=== PATIENT | male | born 1985 | race Caucasian/White ===

== ENCOUNTER 2016-08-09 16:52 | Emergency (ER) | payer MEDICAID, OTHER ==
[~2016-08-09] VITALS: Ht 162.6 cm; Wt 68.0 kg
[2016-08-09 17:00] VITALS: Ht 162.6 cm; Wt 68.0 kg
--- NOTE | 2016-08-09 17:15 | ERD ---
ER Documentation Chief Complaint Date/Time DATE: 08/09/16 TIME: 17:15 Chief Complaint anxiety attack HPI 30-year-old male with no significant previous medical history brought to the ED via rescue ambulance complaining of generalized malaise. He was in his usual state of health until early this morning when he experienced subjective fevers which he took NyQuil. [place] better throughout the day but prior to arrival began to feel "scared" with palpitations and his hands cramping. On arrival EMS found the patient tachycardic with a heart rate of 140, hyperventilating with carpopedal spasm. They were able to reassure him and his symptoms resolved. Denies history of depression or anxiety. No chest pain or shortness of breath. No abdominal pain, nausea or vomiting. Mild generalized body aches and sore throat but no rhinorrhea or nasal congestion. No leg pain or swelling. No skin rash. No headache or neck pain. No dysuria or polyuria. ROS All systems reviewed and are negative except as per history of present illness. Medications Home Meds Active Scripts Acetaminophen* (Tylenol*) 325 Mg Tablet, 2 TAB PO Q4 Y for FEVER, #20 TAB Prov:NAHUM LAKE MD 08/09/16 Allergies Allergies: Coded Allergies: No Known Allergy (Unverified , 08/09/16) PMhx/Soc Reviewed in chart. As per HPI History of Surgery: No Anesthesia Reaction: No Hx Neurological Disorder: No Hx Respiratory Disorders: No Hx Cardiac Disorders: No Hx Psychiatric Problems: No Hx Miscellaneous Medical Probl: No Hx Alcohol Use: No Hx Substance Use: No Hx Tobacco Use: No FmHx No diabetes, stroke or sudden cardiac Physical Exam Vitals Vital Signs Date Time Temp Pulse Resp B/P Pulse Ox O2 Delivery O2 Flow Rate FiO2 08/09/16 18:47 101.3 113 20 137/67 100 Room Air 08/09/16 17:50 102.4 08/09/16 17:00 97.8 109 18 120/70 99 Physical Exam Const: Alert, anxious but in no acute distress. Head: Atraumatic Eyes: Normal Conjunctiva. Pupils equal reactive to light, extraocular movements are intact. No nystagmus. ENT: Normal External Ears, Nose and Mouth. Pharynx is clear without erythema or exudate Neck: Full range of motion. No lymphadenopathy. No meningismus. Resp: Breath sounds are equal and clear to auscultation bilaterally Cardio: Regular rate and rhythm, no murmurs Abd: Soft, non tender, non distended. No rebound or guarding. No masses or abnormal pulsations. Normal bowel sounds Skin: No petechiae or rashes Back: No midline or flank tenderness Ext: No cyanosis, or edema Neur: Awake and alert. No focal deficit observed. Psych: Appears anxious but not depressed. Results 24 hrs Laboratory Tests Test 08/09/16 17:47 Bedside Glucose 107mg/dL Current Medications Medications (Trade) Dose Ordered Sig/Raeann Route PRN Reason Start Time Stop Time Status Last Admin Dose Admin Lorazepam (Ativan) 1 mg ONCE ONCE PO 08/09/16 17:30 08/09/16 17:31 DC 08/09/16 17:40 Acetaminophen (Tylenol Tab) 650 mg ONCE ONCE PO 08/09/16 18:00 08/09/16 18:01 DC 08/09/16 17:57 EKG: Time: 17:24. Sinus tachycardia. Ventricular rate 111, normal [place] and QRS intervals. Normal QTc. No acute ST segment elevation or depression. No axis deviation or ectopy. EP Impression: Sinus tachycardia otherwise normal EKG Procedures/MDM DOCUMENTS REVIEWED: ED nurse, no prior records ED COURSE: Ativan 1 mg PO. Tylenol 650mg PO. [employer] DECISION MAKIN-year-old male with no significant previous medical history brought to the ED via rescue ambulance complaining of generalized malaise. Patient presents with symptoms of nonspecific syndrome suggestive of viral illness. Paramedics witnessed an acute anxiety reaction with tachycardia and carpopedal spasm which resolved prior to arrival. In ED is essentially asymptomatic but still with mild anxiety treated with Ativan. Initially afebrile but temperature filipe to 102.4F, treated with acetaminophen. No signs or symptoms of an occult bacterial infection including but not limited to urinary tract infection and pneumonia. Abdominal exam is benign without rebound , guarding or other signs of acute intra-abdominal process or peritonitis. No skin rash or cellulitis. No signs or symptoms of meningitis or encephalitis. Stable for discharge precautionary instructions, antipyretics and outpatient follow-up as counseled. Counseled patient and family regarding diagnostic workup, diagnosis and need for followup. Understands to return to ED if symptoms recur, worsen or any other concerns. Departure Diagnosis: Primary Impression: Nonspecific syndrome suggestive of viral illness Additional Impressions: Anxiety attack Carpopedal spasm Fever Fever type: unspecified Qualified Code: R50.9 - Fever, unspecified fever cause Condition: Stable NAHUM LAKE MD Aug 09, 2016 17:15
[2016-08-09] MEDS ORDERED: LORAZEPAM 1 MG TAB PO ONE (17:30)
[2016-08-09] MEDS ORDERED: ACETAMINOPHEN 325 MG TAB PO ONE (18:00)
[2016-08-09] MEDS ORDERED: ACET325T33 PO (18:24)
[2016-08-09 18:47] VITALS: BP 137/67; PULSE 113; RESP 20; TEMP 101.3
== END 2016-08-09 18:51 | disposition home or self-care (01) ==
LOC: E/R 16:52
DX: R29.0 Tetany (principal); R50.9 Fever, unspecified; R00.2 Palpitations
CPT/HCPCS: 82962; 93005; Z7502; Z7610